=== PATIENT | female | born 1960 | race American Indian/Alaskan Native ===

== ENCOUNTER 2017-01-04 02:33 | Inpatient (IN) | payer MEDICAID ==
--- NOTE | 2017-01-04 03:11 | ED PDOC ---
HPI: Chest Pain Chief Complaint (Provider): Opioid withdrawal History Per: Patient History/Exam Limitations: clinical condition Onset/Duration Of Symptoms: Days (1) Current Symptoms Are (Timing): Still Present Quality: Pressure Associated Symptoms: Nausea. denies: Dyspnea Additional History Per: Prior Records <Horace Shahid - Last Filed: 01/04/17 04:31> <Sharad Kaplan - Last Filed: 01/04/17 05:56> Time Seen by Provider: 01/04/17 02:43 Chief Complaint (Nursing): Abdominal Pain Additional Complaint(s): 56 year old female with medical history of breast cancer, herniated disc, substance abuse, bipolar disorder presents to ED via EMS due to withdrawals. Patient states she usually takes Dilaudid 2mg PO four times a day for back pain. Patient states ran out of medication last night. Admits to snorting heroin this morning. Patient states has been having withdrawal like symptoms for last 5 hours including nausea, vomiting, chest pressure, abdominal pain, and chills. No fever, headache, palpitations, or IVDA. Patient denies use of any other illicit drugs or etoh. Patient admits to getting 120 pills of Dialudid on 12/21/16 that was prescribed by Dr. Phillips. Patient also admits that she has been taking more than she was prescribed to be taking it, which is why she ran out of meds last night. PMD: [facility] (Horace Shahid) Past Medical History Reviewed: Historical Data, Nursing Documentation, Vital Signs - Medical History PMH: Anxiety, Asthma, Bipolar Disorder, Depression Denies: Chronic Kidney Disease - Family History Family History: States: Unknown Family Hx <Horace Shahid - Last Filed: 01/04/17 04:31> <Sharad Kaplan - Last Filed: 01/04/17 05:56> Vital Signs: Last Vital Signs Temp 98.2 F 01/04/17 02:41 Pulse 80 01/04/17 03:50 Resp 18 01/04/17 03:50 BP 153/94 H 01/04/17 03:50 Pulse Ox 100 01/04/17 04:32 - Home Medications Home Medications: Ambulatory Orders Medication Instructions Recorded Alprazolam [Xanax] 1 mg PO QID 04/27/14 DULoxetine [Cymbalta] 100 mg PO HS 04/27/14 Quetiapine Fumarate [Seroquel] 100 mg PO HS 04/27/14 traZODone [Desyrel] 50 mg PO DAILY 11/21/14 Hydromorphone HCl [Dilaudid] 2 mg PO Q6 PRN 03/06/15 - Allergies Allergies/Adverse Reactions: Allergies Allergy/AdvReac Type Severity Reaction Status Date / Time iodine Allergy RASH Verified 11/13/15 09:48 Review of Systems ROS Statement: Except As Marked, All Systems Reviewed And Found Negative Constitutional: Positive for: Chills. Negative for: Fever Cardiovascular: Positive for: Chest Pain. Negative for: Palpitations Respiratory: Negative for: Cough, Shortness of Breath Gastrointestinal: Positive for: Nausea, Vomiting, Abdominal Pain. Negative for : Diarrhea Skin: Negative for: Rash Neurological: Negative for: Weakness, Dizziness Psych: Positive for: Withdrawal <Horace Shahid - Last Filed: 01/04/17 04:31> Physical Exam - Reviewed Nursing Documentation Reviewed: Yes Vital Signs Reviewed: Yes - Physical Exam Appears: Positive for: Well, Non-toxic, Uncomfortable (withdrawing) Head Exam: Positive for: ATRAUMATIC, NORMAL INSPECTION, NORMOCEPHALIC Skin: Positive for: Normal Color, Warm, Dry Eye Exam: Positive for: Normal appearance, EOMI, PERRL ENT: Positive for: Normal ENT Inspection Neck: Positive for: Normal, Painless ROM, Supple Cardiovascular/Chest: Positive for: Regular Rate, Rhythm Respiratory: Positive for: Normal Breath Sounds. Negative for: Rales, Rhonchi, Wheezing, Respiratory Distress Gastrointestinal/Abdominal: Positive for: Normal Exam, Bowel Sounds, Soft. Negative for: Tenderness Back: Positive for: Normal Inspection. Negative for: L CVA Tenderness, R CVA Tenderness Extremity: Positive for: Normal ROM. Negative for: Tenderness, Pedal Edema Neurologic/Psych: Positive for: Alert, Oriented <Horace Shahid - Last Filed: 01/04/17 04:31> - Laboratory Results Result Diagrams: 01/04/17 03:43 01/04/17 03:43 - ECG ECG Rhythm: Positive for: Normal QRS, Sinus Rhythm, ST/T Changes (throughout, compared to EKG 03/2016 which was not present) O2 Sat by Pulse Oximetry: 100 Pulse Ox Interpretation: Normal <Horace Shahid - Last Filed: 01/04/17 04:31> - Laboratory Results Result Diagrams: 01/04/17 03:43 01/04/17 03:43 <Sharad Kaplan - Last Filed: 01/04/17 05:56> - Progress ED Course And Treament: Time: 0245 Initial impression: 56 year old female w/ PMHx of breast cancer, herniated disc , substance abuse, bipolar disorder with opioid withdrawal symptoms and EKG T wave changes in the present of chest pressure. Plan: * CONTINUOUS CARDIAC MONITORING * CBC * CMP * LIPASE * TROPONIN * EKG * URINE DIP * URINALYSIS * URINE DRUG SCREEN * ALCOHOL SERUM * DILAUDID 2MG IVP * ZOFRAN 4MG IVP * ASA 325MG * NITROSTAT * ADMIT TO TELEMETRY FOR OBSERVATION CHEST PAIN/OPIATE WITHDRAWAL UNDER [facility] (Horace Shahid) Disposition - Patient ED Disposition Is Patient to be Admitted: Yes - Disposition Disposition Time: 04:00 <Horace Shahid - Last Filed: 01/04/17 04:31> Comment: Shashi Buenrostro made aware at 6AM - Pt Status Changed To: Hospital Disposition Of: Observation <Sharad Kaplan - Last Filed: 01/04/17 05:56> - Clinical Impression Clinical Impression: Chest pain, Opiate withdrawal - Disposition Condition: FAIR
[2017-01-04] MEDS ORDERED: Sodium Chloride 0.9% 1,000 ML IV SCH (03:15)
[2017-01-04 03:51] LABS: BASO # 0.1 K/uL (0.0-0.2); BASO % 0.5 % (0.0-2.0); HEMATOCRIT 42.4 % (34.0-47.0); LYMPH # 1.2 K/uL (1.0-4.3); LYMPH % 6.8 % (20.0-40.0); MEAN CELL VOLUME 88.6 fl (81.0-99.0); MEAN CORPUSCULAR HEMOGLOBIN 29.4 pg (27.0-31.0); MEAN CORPUSCULAR HGB CONC 33.2 g/dL (33.0-37.0); MEAN PLATELET VOLUME 8.5 fl (7.2-11.7); MONO # 0.4 K/uL (0.0-0.8); MONO % 2.2 % (0.0-10.0); NEUT # 15.6 K/uL (1.8-7.0); NEUT % 90.5 % (50.0-75.0); PLATELET COUNT 213 K/uL (130-400); RED CELL DISTRIBUTION WIDTH 14.4 % (11.5-14.5); WHITE BLOOD COUNT 17.2 K/uL (4.8-10.8)
[2017-01-04 03:58] LABS: ALB/GLOB RATIO 1.3 (1.0-2.1); ALCOHOL SERUM < 10 mg/dl (0-10); ALKALINE PHOSPHATASE 127 U/L (38-126); ALT/SGPT 21 U/L (9-52); AST/SGOT 22 U/L (14-36); BILIRUBIN,TOTAL 0.6 mg/dl (0.2-1.3); BLOOD UREA NITROGEN 17 mg/dl (7-17); CALCIUM 10.9 mg/dL (8.4-10.2); CARBON DIOXIDE 22 mmol/L (22-30); CHLORIDE 106 mmol/L (98-107); GFR AFRICAN-AMERICAN > 60; GLUCOSE,RANDOM 180 mg/dL (65-105); LIPASE 40 U/L (23-300); POTASSIUM 3.2 MMOL/L (3.6-5.0); SODIUM 147 mmol/l (132-148)
[2017-01-04 04:11] LABS: PARTIAL THROMBOPLASTIN TIME 22.9 SECONDS (23.3-32.5)
[2017-01-04 05:38] LABS: EOSINOPHIL 1 % (0-7); NEUTROPHIL 88 % (42-75); TOTAL CELLS COUNTED 100
[2017-01-04 06:21] VITALS: BMI 29.2
[2017-01-04] MEDS: Nitroglycerin 2% 15 INCH/30 GM TUBE TOP SCH ×3 (09:28→21:33)
--- NOTE | 2017-01-04 10:15 | RAD ---
HISTORY: chest pain COMPARISON: 04/17/2011 FINDINGS: LUNGS: Linear opacities in the lingula, likely atelectasis. PLEURA: No significant pleural effusion identified, no pneumothorax apparent.Biapical pleural parenchymal thickening noted. CARDIOVASCULAR: Mildly enlarged cardiomediastinal silhouette when compared to the radiograph from 2011. OSSEOUS STRUCTURES: The osseous structures demonstrate degenerative changes. VISUALIZED UPPER ABDOMEN: Upper abdomen is suboptimally evaluated. OTHER FINDINGS: Surgical clips in the right axilla. IMPRESSION: Most likely atelectatic changes in the lingula.
--- NOTE | 2017-01-04 10:18 | CP.PCM.HP ---
History of Present Illness - History of Present Illness History of Present Illness: pt admitted for chest pain after snorting heroin. pt used heroin as she ran out of her dilaudid early. pt is on dialudid q6 prn pain for chronic back pain r /t herniate dlumbar disc. pt states that she ahs been on this med for so long it does not work well for her. no pain reported at present after taking xanax. urine tox positive for opioids not benzos. wbc 17, k low, coags noted. pt offers no complaints at present. no fc/, n/v/d. consults called by this provider. Present on Admission - Present on Admission Any Indicators Present on Admission: No Review of Systems - Cardiovascular Cardiovascular: As Per HPI, Chest Pain - Musculoskeletal Musculoskeletal: As Per HPI, Back Pain Past Patient History - Past Medical History & Family History Past Medical History?: Yes - Past Social History Smoking Status: Never Smoked - CARDIAC Hx Cardiac Disorders: No - PULMONARY Hx Asthma: Yes - NEUROLOGICAL Hx Neurological Disorder: No - HEENT Hx HEENT Problems: No - RENAL Hx Chronic Kidney Disease: No - ENDOCRINE/METABOLIC Hx Endocrine Disorders: No - HEMATOLOGICAL/ONCOLOGICAL Hx Blood Disorders: Yes Hx Cancer: Yes (Right breast CA) Hx Chemotherapy: Yes Other/Comment: hx of right breast cancer - INTEGUMENTARY Hx Dermatological Problems: No - MUSCULOSKELETAL/RHEUMATOLOGICAL Hx Musculoskeletal Disorders: Yes Hx Back Pain: Yes Hx Falls: Yes Hx Herniated Disk: Yes - GASTROINTESTINAL Hx Gastrointestinal Disorders: No - GENITOURINARY/GYNECOLOGICAL Hx Genitourinary Disorders: No Other/Comment: hx of tumor in uterus/cyst in ovary breast ca on right - PSYCHIATRIC Hx Anxiety: Yes Hx Bipolar Disorder: Yes Hx Depression: Yes Hx Substance Use: Yes - SURGICAL HISTORY Hx Surgeries: Yes Hx Mastectomy: Yes (right) Other/Comment: /cyst in the ovarywedge resection-tumor. 03/06/2015 medial nerve branch inj. - ANESTHESIA Hx Anesthesia: Yes Hx Anesthesia Reactions: No Hx Malignant Hyperthermia: No Meds Allergies/Adverse Reactions: Allergies Allergy/AdvReac Type Severity Reaction Status Date / Time iodine Allergy RASH Verified 11/13/15 09:48 Physical Exam - Constitutional Appears: Well, Non-toxic, No Acute Distress - Head Exam Head Exam: ATRAUMATIC, NORMAL INSPECTION, NORMOCEPHALIC - Eye Exam Eye Exam: EOMI, Normal appearance, PERRL Pupil Exam: NORMAL ACCOMODATION, PERRL - ENT Exam ENT Exam: Mucous Membranes Moist, Normal Exam - Neck Exam Neck exam: Positive for: Normal Inspection - Respiratory Exam Respiratory Exam: Clear to Auscultation Bilateral, NORMAL BREATHING PATTERN - Cardiovascular Exam Cardiovascular Exam: REGULAR RHYTHM, RRR, +S1, +S2 - GI/Abdominal Exam GI & Abdominal Exam: Normal Bowel Sounds, Soft. absent: Tenderness - Extremities Exam Extremities exam: Positive for: full ROM, normal capillary refill, normal inspection, pedal pulses present - Back Exam Back exam: NORMAL INSPECTION - Neurological Exam Neurological exam: Alert, CN II-XII Intact, Normal Gait, Oriented x3, Reflexes Normal - Psychiatric Exam Psychiatric exam: Normal Affect, Normal Mood - Skin Skin Exam: Dry, Intact, Normal Color, Warm Results - Vital Signs Recent Vital Signs: Last Vital Signs Temp 98.4 F 01/04/17 08:10 Pulse 89 01/04/17 08:10 Resp 16 01/04/17 08:10 BP 158/91 H 01/04/17 08:10 Pulse Ox 98 01/04/17 08:10 - Labs Result Diagrams: 01/04/17 03:43 01/04/17 03:43 Labs: Laboratory Results - last 24 hr 01/04/17 01/04/17 01/04/17 03:43 03:43 03:43 WBC 17.2 H D RBC 4.79 Hgb 14.1 Hct 42.4 MCV 88.6 MCH 29.4 MCHC 33.2 RDW 14.4 Plt Count 213 MPV 8.5 Neut % (Auto) 90.5 H Lymph % (Auto) 6.8 L Shelby % (Auto) 2.2 Eos % (Auto) 0.0 Baso % (Auto) 0.5 Neut # 15.6 H Lymph # 1.2 Shelby # 0.4 Eos # 0.0 Baso # 0.1 Neutrophils % (Manual) 88 H Band Neutrophils % 1 Lymphocytes % (Manual) 8 L Monocytes % (Manual) 2 Eosinophils % (Manual) 1 Platelet Estimate Normal RBC Morphology Normal PT 12.0 H INR 1.15 H APTT 22.9 L Sodium 147 Potassium 3.2 L Chloride 106 Carbon Dioxide 22 Anion Gap 22 H BUN 17 Creatinine 0.6 L Est GFR ( Amer) > 60 Est GFR (Non-Af Amer) > 60 Random Glucose 180 H Calcium 10.9 H Total Bilirubin 0.6 AST 22 ALT 21 Alkaline Phosphatase 127 H D Troponin I < 0.0120 Total Protein 9.0 H Albumin 5.1 H D Globulin 4.0 H Albumin/Globulin Ratio 1.3 Lipase 40 Urine Opiates Screen Urine Methadone Screen Ur Barbiturates Screen Ur Phencyclidine Scrn Ur Amphetamines Screen U Benzodiazepines Scrn U Oth Cocaine Metabols U Cannabinoids Screen Alcohol, Quantitative < 10 01/04/17 04:56 WBC RBC Hgb Hct MCV MCH MCHC RDW Plt Count MPV Neut % (Auto) Lymph % (Auto) Shelby % (Auto) Eos % (Auto) Baso % (Auto) Neut # Lymph # Shelby # Eos # Baso # Neutrophils % (Manual) Band Neutrophils % Lymphocytes % (Manual) Monocytes % (Manual) Eosinophils % (Manual) Platelet Estimate RBC Morphology PT INR APTT Sodium Potassium Chloride Carbon Dioxide Anion Gap BUN Creatinine Est GFR ( Amer) Est GFR (Non-Af Amer) Random Glucose Calcium Total Bilirubin AST ALT Alkaline Phosphatase Troponin I Total Protein Albumin Globulin Albumin/Globulin Ratio Lipase Urine Opiates Screen Positive H Urine Methadone Screen Negative Ur Barbiturates Screen Negative Ur Phencyclidine Scrn Negative Ur Amphetamines Screen Negative U Benzodiazepines Scrn Negative U Oth Cocaine Metabols Negative U Cannabinoids Screen Negative Alcohol, Quantitative Assessment & Plan (1) DVT prophylaxis Assessment and Plan: scd nad ae hose ambulation lovenox if admitted over 24h Status: Acute (2) Hypokalemia Assessment and Plan: repeat, tx as indicated Status: Acute (3) Elevated WBC count Assessment and Plan: repeat, tx as indicated cxr report, ua and c/s blood cs Status: Acute (4) Chest pain Assessment and Plan: trops asa cardio no further cp, ntg prn Status: Acute (5) Opiate withdrawal Assessment and Plan: no s/s withdrawal at present, pt is on ebnzo which seem to help pm/r consult Status: Acute Decision To Admit - Pt Status Changed To: Hospital Disposition Of: Observation - . Bed Request Type: Telemetry Admitting Physician: Yajaira Fernández
--- NOTE | 2017-01-04 10:55 | CARD ---
APPROVED REPORT EKG Measurement Heart [id number] <Conclusion> Normal sinus rhythm Possible Right ventricular hypertrophy ST & T wave abnormality, consider inferior ischemia ST & T wave abnormality, consider anterolateral ischemia Prolonged QT Abnormal ECG
[2017-01-04 11:57] LABS: BASO % 0.2 % (0.0-2.0); HEMATOCRIT 40.2 % (34.0-47.0); LYMPH # 1.5 K/uL (1.0-4.3); LYMPH % 12.1 % (20.0-40.0); MEAN CELL VOLUME 89.9 fl (81.0-99.0); MEAN CORPUSCULAR HEMOGLOBIN 29.7 pg (27.0-31.0); MEAN PLATELET VOLUME 8.5 fl (7.2-11.7); MONO # 0.5 K/uL (0.0-0.8); MONO % 3.6 % (0.0-10.0); NEUT # 10.7 K/uL (1.8-7.0); NEUT % 84.1 % (50.0-75.0); RED CELL DISTRIBUTION WIDTH 14.5 % (11.5-14.5); WHITE BLOOD COUNT 12.7 K/uL (4.8-10.8)
[2017-01-04 12:38] LABS: ALB/GLOB RATIO 1.2 (1.0-2.1); ALKALINE PHOSPHATASE 117 U/L (38-126); ALT/SGPT 19 U/L (9-52); AST/SGOT 20 U/L (14-36); BILIRUBIN,TOTAL 0.6 mg/dl (0.2-1.3); BLOOD UREA NITROGEN 16 mg/dl (7-17); CALCIUM 10.4 mg/dL (8.4-10.2); CARBON DIOXIDE 25 mmol/L (22-30); CHLORIDE 105 mmol/L (98-107); GFR AFRICAN-AMERICAN > 60; GLUCOSE,RANDOM 140 mg/dL (65-105); POTASSIUM 3.4 MMOL/L (3.6-5.0); SODIUM 145 mmol/l (132-148); TOTAL PROTEIN 8.8 G/DL (6.3-8.2)
--- NOTE | 2017-01-04 13:48 | CP.PCM.CON ---
History of Present Illness - History of Present Illness History of Present Illness: I was asked to see patient by Shashi Buenrostro APN and Dr. Fernández. Patient is a 56 year old female with PMH HTN, and heroin abuse who presents with chest pain. The patient is on chronic opiod therapy for back pain. She ran out of meds, and snorted heroin. He has had chest pain, nonradiating, occurring at rest. She denies exertional symptoms. She is asking me fro a Dilaudid shot. Review of Systems - Constitutional Constitutional: absent: As Per HPI, Anorexia, Chills, Daytime Sleepiness, Excessive Sweating, Fatigue, Fever, Frequent Falls, Headache, Increased Appetite , Lethargy, Malaise, Night Sweats, Snoring, Sleep Apnea, Weight Gain, Weight Loss, Weakness, Other - EENT Eyes: absent: As Per HPI, Blind Spots, Blurred Vision, Change in Vision, Decreased Night Vision, Diplopia, Discharge, Dry Eye, Exophthalmos, Floaters, Irritation, Itchy Eyes, Loss of Peripheral Vision, Pain, Photophobia, Requires Corrective Lenses, Sees Flashes, Spots in Vision, Tunnel Vision, Other Visual Disturbances, Loss of Vision, Other Ears: absent: As Per HPI, Decreased Hearing, Ear Discharge, Ear Pain, Tinnitus, Abnormal Hearing, Disequilibrium, Dizziness, Other Nose/Mouth/Throat: absent: As Per HPI, Epistaxis, Nasal Congestion, Nasal Discharge, Nasal Obstruction, Nasal Trauma, Nose Pain, Post Nasal Drip, Sinus Pain, Sinus Pressure, Bleeding Gums, Change in Voice, Dental Pain, Dry Mouth, Dysphagia, Halitosis, Hoarsness, Lip Swelling, Mouth Lesions, Mouth Pain, Odynophagia, Sore Throat, Throat Swelling, Tongue Swelling, Facial Pain, Neck Pain, Neck Mass, Other - Cardiovascular Cardiovascular: absent: As Per HPI, Acrocyanosis, Chest Pain, Chest Pain at Rest , Chest Pain with Activity, Claudication, Diaphoresis, Dyspnea, Dyspnea on Exertion, Edema, Irregular Heart Rhythm, Pain Radiating to Arm/Neck/Jaw, Leg Edema, Leg Ulcers, Lightheadedness, Orthopnea, Palpitations, Paroxysmal Nocturnal Dyspnea, Pedal Edema, Radiating Pain, Rapid Heart Rate, Slow Heart Rate, Syncope, Other - Respiratory Respiratory: absent: As Per HPI, Cough, Dyspnea, Hemoptysis, Dyspnea on Exertion , Wheezing, Snoring, Stridor, Pain on Inspiration, Chest Congestion, Excessive Mucous Production, Change in Mucous Color, Pain with Coughing, Other - Gastrointestinal Gastrointestinal: absent: As Per HPI, Abdominal Pain, Belching, Bloating, Change in Bowel Habits, Change in Stool Character, Coffee Ground Emesis, Constipation, Cramping, Diarrhea, Dyspepsia, Dysphagia, Early Satiety, Excessive Flatus, Fecal Incontinence, Heartburn, Hematemesis, Hematochezia, Loose Stools, Melena, Nausea, Odynophagia, Temesmus, Vomiting, Other - Musculoskeletal Musculoskeletal: absent: As Per HPI, Abnormal Gait, Arthralgias, Atrophy, Back Pain, Deformity, Joint Swelling, Limited Range of Motion, Loss of Height, Muscle Cramps, Muscle Weakness, Myalgias, Neck Pain, Numbness, Radiating Pain into Limb, Stiffness, Tingling, Other - Integumentary Integumentary: absent: As Per HPI, Acne, Alopecia, Bleeding Lesions, Change in Hair, Change in Nails, Change in Pigmentation, Changing Lesions, Dry Skin, Erythema, Furuncle, Hirsutism, Lesions, New Lesions, Non-Healing Lesions, Photosensitivity, Pruritus, Rash, Skin Pain, Skin Ulcer, Sores, Striae, Swelling , Unusual Bruising, Wounds, Jaundice, Other - Neurological Neurological: absent: As Per HPI, Abnormal Gait, Abnormal Hearing, Abnormal Movements, Abnormal Speech, Behavioral Changes, Burning Sensations, Confusion, Convulsions, Disequilibrium, Dizziness, Numbness, Focal Weakness, Frequent Falls , Headaches, Lack of Coordination, Loss of Vision, Memory Loss, Paresthesias, Radicular Pain, Restless Legs, Sensory Deficit, Syncope, Tingling, Tremor, Vertigo, Weakness, Other Visual Disturbances, Other - Psychiatric Psychiatric: absent: As Per HPI, Abnormal Sleep Pattern, Anhedonia, Anxiety, Auditory Hallucinations, Behavioral Changes, Change in Appetite, Change in Libido, Confusion, Depression, Difficulty Concentrating, Hallucinations, Homicidal Ideation, Hopelessness, Irritability, Memory Loss, Mood Swings, Panic Attacks, Paranoia, Suicidal Ideation, Visual Hallucinations, Tactile Hallucinations, Other - Endocrine Endocrine: absent: As Per HPI, Change in Body Appearance, Change in Libido, Cold Intolorance, Deepening of Voice, Excessive Sweating, Fatigue, Flushing, Heat Intolorance, Increase in Ring/Shoe/Hat Size, Palpitations, Polydipsia, Polyphagia, Polyuria, Other - Hematologic/Lymphatic Hematologic: absent: As Per HPI, Easy Bleeding, Easy Bruising, Lymphadenopathy, Other Past Patient History - Past Medical History & Family History Past Medical History?: Yes - Past Social History Smoking Status: Never Smoked - CARDIAC Hx Cardiac Disorders: No - PULMONARY Hx Asthma: Yes - NEUROLOGICAL Hx Neurological Disorder: No - HEENT Hx HEENT Problems: No - RENAL Hx Chronic Kidney Disease: No - ENDOCRINE/METABOLIC Hx Endocrine Disorders: No - HEMATOLOGICAL/ONCOLOGICAL Hx Blood Disorders: Yes Hx Cancer: Yes (Right breast CA) Hx Chemotherapy: Yes Other/Comment: hx of right breast cancer - INTEGUMENTARY Hx Dermatological Problems: No - MUSCULOSKELETAL/RHEUMATOLOGICAL Hx Musculoskeletal Disorders: Yes Hx Back Pain: Yes Hx Falls: Yes Hx Herniated Disk: Yes - GASTROINTESTINAL Hx Gastrointestinal Disorders: No - GENITOURINARY/GYNECOLOGICAL Hx Genitourinary Disorders: No Other/Comment: hx of tumor in uterus/cyst in ovary breast ca on right - PSYCHIATRIC Hx Anxiety: Yes Hx Bipolar Disorder: Yes Hx Depression: Yes Hx Substance Use: Yes - SURGICAL HISTORY Hx Surgeries: Yes Hx Mastectomy: Yes (right) Other/Comment: /cyst in the ovarywedge resection-tumor. 03/06/2015 medial nerve branch inj. - ANESTHESIA Hx Anesthesia: Yes Hx Anesthesia Reactions: No Hx Malignant Hyperthermia: No Meds Allergies/Adverse Reactions: Allergies Allergy/AdvReac Type Severity Reaction Status Date / Time iodine Allergy RASH Verified 11/13/15 09:48 - Medications Medications: Current Medications Alprazolam (Xanax) 1 mg PO QID [facility] Last Admin: 01/04/17 12:30 Dose: 1 mg Aspirin (Aspirin Chewable) 81 mg PO DAILY [facility] Duloxetine HCl (Cymbalta) 40 mg PO HS [facility] Duloxetine HCl (Cymbalta) 60 mg PO HS [facility] Hydromorphone HCl (Dilaudid) 2 mg PO Q8 PRN PRN Reason: Pain, moderate (4-7) Stop: 01/05/17 23:59 Sodium Chloride (Sodium Chloride 0.9%) 1,000 mls @ 999 mls/hr IV .Q1H1M [facility] Stop: 01/05/17 03:04 Last Admin: 01/04/17 03:45 Dose: 999 mls/hr Nitroglycerin (Nitro-Bid 2% Oint) 1 inch TOP Q6 [facility] Last Admin: 01/04/17 09:28 Dose: 1 inch Nitroglycerin (Nitrostat Sl Tab) 0.4 mg SL Q5M PRN PRN Reason: chest pain Ondansetron HCl (Zofran Inj) 4 mg IV Q6 PRN PRN Reason: Nausea/Vomiting Last Admin: 01/04/17 09:32 Dose: 4 mg Quetiapine Fumarate (Seroquel) 100 mg PO HS [facility] Trazodone HCl (Desyrel) 50 mg PO DAILY [facility] Last Admin: 01/04/17 09:27 Dose: 50 mg Physical Exam - Constitutional Appears: Non-toxic - Head Exam Head Exam: NORMAL INSPECTION - Eye Exam Eye Exam: Normal appearance - ENT Exam ENT Exam: Mucous Membranes Moist - Neck Exam Neck exam: Positive for: Full Rom - Respiratory Exam Respiratory Exam: NORMAL BREATHING PATTERN - Cardiovascular Exam Cardiovascular Exam: REGULAR RHYTHM - GI/Abdominal Exam GI & Abdominal Exam: Normal Bowel Sounds - Rectal Exam Rectal Exam: Deferred - Extremities Exam Extremities exam: Positive for: normal inspection - Back Exam Back exam: NORMAL INSPECTION - Neurological Exam Neurological exam: Alert, Oriented x3 - Psychiatric Exam Psychiatric exam: Normal Affect - Skin Skin Exam: Normal Color Results - Vital Signs Recent Vital Signs: Last Vital Signs Temp 99.4 F 01/04/17 12:15 Pulse 79 01/04/17 12:15 Resp 23 01/04/17 12:15 BP 156/89 H 01/04/17 12:15 Pulse Ox 95 01/04/17 12:15 - Labs Result Diagrams: 01/04/17 11:47 01/04/17 11:47 Labs: Laboratory Results - last 24 hr 01/04/17 01/04/17 01/04/17 03:43 03:43 03:43 WBC 17.2 H D RBC 4.79 Hgb 14.1 Hct 42.4 MCV 88.6 MCH 29.4 MCHC 33.2 RDW 14.4 Plt Count 213 MPV 8.5 Neut % (Auto) 90.5 H Lymph % (Auto) 6.8 L Amelia % (Auto) 2.2 Eos % (Auto) 0.0 Baso % (Auto) 0.5 Neut # 15.6 H Lymph # 1.2 Amelia # 0.4 Eos # 0.0 Baso # 0.1 Neutrophils % (Manual) 88 H Band Neutrophils % 1 Lymphocytes % (Manual) 8 L Monocytes % (Manual) 2 Eosinophils % (Manual) 1 Platelet Estimate Normal RBC Morphology Normal PT 12.0 H INR 1.15 H APTT 22.9 L Sodium 147 Potassium 3.2 L Chloride 106 Carbon Dioxide 22 Anion Gap 22 H BUN 17 Creatinine 0.6 L Est GFR ( Amer) > 60 Est GFR (Non-Af Amer) > 60 Random Glucose 180 H Calcium 10.9 H Total Bilirubin 0.6 AST 22 ALT 21 Alkaline Phosphatase 127 H D Troponin I < 0.0120 Total Protein 9.0 H Albumin 5.1 H D Globulin 4.0 H Albumin/Globulin Ratio 1.3 Lipase 40 Urine Opiates Screen Urine Methadone Screen Ur Barbiturates Screen Ur Phencyclidine Scrn Ur Amphetamines Screen U Benzodiazepines Scrn U Oth Cocaine Metabols U Cannabinoids Screen Alcohol, Quantitative < 10 01/04/17 01/04/17 01/04/17 04:56 11:47 11:47 WBC 12.7 H RBC 4.47 Hgb 13.3 Hct 40.2 MCV 89.9 MCH 29.7 MCHC 33.0 RDW 14.5 Plt Count 189 MPV 8.5 Neut % (Auto) 84.1 H Lymph % (Auto) 12.1 L Amelia % (Auto) 3.6 Eos % (Auto) 0.0 Baso % (Auto) 0.2 Neut # 10.7 H Lymph # 1.5 Amelia # 0.5 Eos # 0.0 Baso # 0.0 Neutrophils % (Manual) Band Neutrophils % Lymphocytes % (Manual) Monocytes % (Manual) Eosinophils % (Manual) Platelet Estimate RBC Morphology PT INR APTT Sodium 145 Potassium 3.4 L Chloride 105 Carbon Dioxide 25 Anion Gap 18 BUN 16 Creatinine 0.6 L Est GFR ( Amer) > 60 Est GFR (Non-Af Amer) > 60 Random Glucose 140 H Calcium 10.4 H Total Bilirubin 0.6 AST 20 ALT 19 Alkaline Phosphatase 117 Troponin I < 0.0120 Total Protein 8.8 H Albumin 4.9 Globulin 4.0 H Albumin/Globulin Ratio 1.2 Lipase Urine Opiates Screen Positive H Urine Methadone Screen Negative Ur Barbiturates Screen Negative Ur Phencyclidine Scrn Negative Ur Amphetamines Screen Negative U Benzodiazepines Scrn Negative U Oth Cocaine Metabols Negative U Cannabinoids Screen Negative Alcohol, Quantitative - EKG Data EKG Interpreted by: Myself EKG shows normal: Sinus rhythm Assessment & Plan (1) Hypertension Assessment and Plan: willneed to monitor blood pressure. consider additon of Norvasc 10 mg daily. Status: Acute (2) Chest pain Assessment and Plan: no acute ischemia noted. recommend serial cardiac enzymes. check echocardiogram to assess for regional wall motion abnormalities. If cardiac enzymes are negative patient can likely be discharged home. Status: Acute
[2017-01-04] MEDS ORDERED: Potassium Chloride 20 mEq ER Tab PO ONE (15:39)
[2017-01-05] MEDS: Nitroglycerin 2% 15 INCH/30 GM TUBE TOP SCH ×2 (04:00→09:10)
[2017-01-05 05:32] LABS: BASO % 0.3 % (0.0-2.0); LYMPH # 2.8 K/uL (1.0-4.3); LYMPH % 19.7 % (20.0-40.0); MEAN CELL VOLUME 90.7 fl (81.0-99.0); MEAN CORPUSCULAR HEMOGLOBIN 29.8 pg (27.0-31.0); MEAN CORPUSCULAR HGB CONC 32.8 g/dL (33.0-37.0); MEAN PLATELET VOLUME 8.3 fl (7.2-11.7); NEUT # 10.3 K/uL (1.8-7.0); RED CELL DISTRIBUTION WIDTH 14.6 % (11.5-14.5); WHITE BLOOD COUNT 14.1 K/uL (4.8-10.8)
[2017-01-05 05:46] LABS: ALB/GLOB RATIO 1.3 (1.0-2.1); ALKALINE PHOSPHATASE 113 U/L (38-126); ALT/SGPT 63 U/L (9-52); AST/SGOT 71 U/L (14-36); BILIRUBIN,TOTAL 0.8 mg/dl (0.2-1.3); BLOOD UREA NITROGEN 14 mg/dl (7-17); CALCIUM 10.2 mg/dL (8.4-10.2); CARBON DIOXIDE 25 mmol/L (22-30); CHLORIDE 103 mmol/L (98-107); GFR AFRICAN-AMERICAN > 60; GLUCOSE,RANDOM 132 mg/dL (65-105); SODIUM 141 mmol/l (132-148); TOTAL PROTEIN 8.3 G/DL (6.3-8.2)
[2017-01-05] MEDS ORDERED: Potassium Chloride 20 mEq ER Tab PO ONE (06:12)
--- NOTE | 2017-01-05 07:19 | CP.PCM.PN ---
Subjective - Date & Time of Evaluation Date of Evaluation: 01/05/17 Time of Evaluation: 07:19 - Subjective Subjective: pt comfortable in bed. no distress/no f/c, n/v/d. bw noted. wbc 14, k 3.0. ua pending. echo pending.t rops negative. pm/r consult pending. no cp, abd pain. Objective - Vital Signs/Intake and Output Vital Signs (last 24 hours): Temp Pulse Resp BP Pulse Ox 98.5 F 87 18 134/77 98 01/05/17 05:00 01/05/17 05:00 01/05/17 05:00 01/05/17 05:00 01/05/17 05:00 Intake and Output: 01/05/17 01/05/17 06:59 18:59 Intake Total 260 Balance 260 - Medications Medications: Current Medications Alprazolam (Xanax) 1 mg PO QID [facility] Last Admin: 01/04/17 21:33 Dose: 1 mg Aspirin (Aspirin Chewable) 81 mg PO DAILY [facility] Duloxetine HCl (Cymbalta) 40 mg PO [facility] Last Admin: 01/04/17 21:32 Dose: 40 mg Duloxetine HCl (Cymbalta) 60 mg PO [facility] Last Admin: 01/04/17 21:32 Dose: 60 mg Hydromorphone HCl (Dilaudid) 2 mg PO Q8 PRN PRN Reason: Pain, moderate (4-7) Stop: 01/05/17 23:59 Nitroglycerin (Nitro-Bid 2% Oint) 1 inch TOP Q6 [facility] Last Admin: 01/05/17 04:00 Dose: 1 inch Nitroglycerin (Nitrostat Sl Tab) 0.4 mg SL Q5M PRN PRN Reason: chest pain Ondansetron HCl (Zofran Inj) 4 mg IV Q6 PRN PRN Reason: Nausea/Vomiting Last Admin: 01/05/17 05:42 Dose: 4 mg Quetiapine Fumarate (Seroquel) 100 mg PO [facility] Last Admin: 01/04/17 21:32 Dose: 100 mg Trazodone HCl (Desyrel) 50 mg PO DAILY [facility] Last Admin: 01/04/17 09:27 Dose: 50 mg - Labs Labs: 01/05/17 04:25 01/05/17 04:25 PT 12.0 SECONDS (9.6-11.2) H 01/04/17 03:43 INR 1.15 (0.92-1.08) H 01/04/17 03:43 APTT 22.9 SECONDS (23.3-32.5) L 01/04/17 03:43 - Constitutional Appears: Well, Non-toxic, No Acute Distress - Head Exam Head Exam: ATRAUMATIC, NORMAL INSPECTION, NORMOCEPHALIC - Eye Exam Eye Exam: EOMI, Normal appearance, PERRL Pupil Exam: NORMAL ACCOMODATION, PERRL - ENT Exam ENT Exam: Mucous Membranes Moist, Normal Exam - Neck Exam Neck Exam: Full ROM, Normal Inspection. absent: Lymphadenopathy - Respiratory Exam Respiratory Exam: Clear to Ausculation Bilateral, NORMAL BREATHING PATTERN - Cardiovascular Exam Cardiovascular Exam: REGULAR RHYTHM, RRR, +S1, +S2. absent: Murmur - GI/Abdominal Exam GI & Abdominal Exam: Soft, Normal Bowel Sounds. absent: Tenderness - Extremities Exam Extremities Exam: Full ROM, Normal Capillary Refill, Normal Inspection. absent : Joint Swelling, Pedal Edema - Back Exam Back Exam: NORMAL INSPECTION - Neurological Exam Neurological Exam: Alert, Awake, CN II-XII Intact, Normal Gait, Oriented x3 - Psychiatric Exam Psychiatric exam: Normal Affect, Normal Mood - Skin Skin Exam: Dry, Intact, Normal Color, Warm Assessment and Plan (1) DVT prophylaxis Status: Acute (2) Hypokalemia Status: Acute (3) Elevated WBC count Status: Acute (4) Chest pain Status: Acute (5) Opiate withdrawal Status: Acute - Assessment and Plan (Free Text) Assessment: (1) DVT prophylaxis Assessment and Plan: scd nad ae hose ambulation lovenox if admitted over 24h Status: Acute (2) Hypokalemia Assessment and Plan: kdur, repeat 1300 Status: Acute (3) Elevated WBC count Assessment and Plan: repeat, tx as indicated cxr report, ua and c/s blood cs Status: Acute (4) Chest pain Assessment and Plan: trops asa cardio no further cp, ntg prn echo Status: Acute (5) Opiate withdrawal Assessment and Plan: no s/s withdrawal at present, pt is on benzo which seem to help pm/r consult Status: Acute likely dc today
[2017-01-05 07:38] VITALS: PULSE 84
--- NOTE | 2017-01-05 08:31 | CP.PCM.PN ---
Subjective - Date & Time of Evaluation Date of Evaluation: 01/05/17 Time of Evaluation: 08:15 - Subjective Subjective: Patient is well known to me from outpatient pain management clinic. Her pain has been treated with Dilaudid 2mg, Soma 350mg, on a monthly basis and injections intermittently for her lower back pain. She has chronic pain from cervical and lumbar spondylosis and post mastectomy pain syndrome. She's always been compliant and her tox screen has always been appropriate. She admits to using heroin after running out of pain medications. I explained to the patient that I will no longer be able to see her as an outpatient, but 2-week prescription will be given so that she'll have time to find another pain physician. Objective - Vital Signs/Intake and Output Vital Signs (last 24 hours): Temp Pulse Resp BP Pulse Ox 98.3 F 84 16 139/78 96 01/05/17 07:37 01/05/17 07:37 01/05/17 07:37 01/05/17 07:37 01/05/17 07:37 Intake and Output: 01/05/17 01/05/17 06:59 18:59 Intake Total 260 Balance 260 - Medications Medications: Current Medications Alprazolam (Xanax) 1 mg PO QID [facility] Aspirin (Aspirin Chewable) 81 mg PO DAILY [facility] Duloxetine HCl (Cymbalta) 40 mg PO [facility] Last Admin: 01/04/17 21:32 Dose: 40 mg Duloxetine HCl (Cymbalta) 60 mg PO HS [facility] Last Admin: 01/04/17 21:32 Dose: 60 mg Hydromorphone HCl (Dilaudid) 2 mg PO Q8 PRN PRN Reason: Pain, moderate (4-7) Stop: 01/05/17 23:59 Nitroglycerin (Nitro-Bid 2% Oint) 1 inch TOP Q6 [facility] Last Admin: 01/05/17 04:00 Dose: 1 inch Nitroglycerin (Nitrostat Sl Tab) 0.4 mg SL Q5M PRN PRN Reason: chest pain Ondansetron HCl (Zofran Inj) 4 mg IV Q6 PRN PRN Reason: Nausea/Vomiting Last Admin: 01/05/17 05:42 Dose: 4 mg Quetiapine Fumarate (Seroquel) 100 mg PO HS [facility] Last Admin: 01/04/17 21:32 Dose: 100 mg Trazodone HCl (Desyrel) 50 mg PO DAILY [facility] Last Admin: 01/04/17 09:27 Dose: 50 mg - Labs Labs: 01/05/17 04:25 01/05/17 04:25 PT 12.0 SECONDS (9.6-11.2) H 01/04/17 03:43 INR 1.15 (0.92-1.08) H 01/04/17 03:43 APTT 22.9 SECONDS (23.3-32.5) L 01/04/17 03:43 - Cardiovascular Exam Cardiovascular Exam: REGULAR RHYTHM - Back Exam Back Exam: tenderness, vertebral tenderness Assessment and Plan (1) Opiate withdrawal Assessment & Plan: 56 yo woman w/ chronic pain, being ruled out for ACS after using heroin. - f/u cardiac recommendation - 2 week prescription of pain medication will be left in her chart - patient will find own pain physician upon discharge Status: Acute
[2017-01-05 10:48] LABS: RBC URINE 41 /hpf (0-3); URINE BILIRUBIN NEGATIVE (NEGATIVE); URINE BLOOD SMALL (NEGATIVE); URINE COLOR YELLOW (YELLOW); URINE GLUCOSE (UA) NEGATIVE (Normal); URINE KETONE 20 mg/dL (NEGATIVE); URINE LEUKOCYTE ESTERASE NEGATIVE Leu/uL (Negative); URINE PROTEIN 100 mg/dL (NEGATIVE); URINE UROBILINOGEN 0.2-1.0 mg/dL (0.2-1.0); WBC URINE 37 /hpf (0-5)
[2017-01-05 10:49] LABS: URINE BACTERIA OCC (<OCC)
[2017-01-05] MEDS ORDERED: Tmp-Smz 800 mg-160 mg DS Tab PO SCH (11:15)
[2017-01-05] MEDS ORDERED: Sodium Chloride 0.9% 1,000 ML IV SCH (11:15)
[2017-01-05 12:41] VITALS: BP 156/89; RESP 18; TEMP 98.2; O2SAT 97
--- NOTE | 2017-01-05 14:44 | CARD ---
APPROVED REPORT EXAM: Two-dimensional and M-mode echocardiogram with Doppler and color Doppler. Other Information Quality : GoodRhythm : NSR INDICATION Chest Pain 2D DIMENSIONS IVSd0.87 (0.7-1.1cm)LVDd4.51 (3.9-5.9cm) LVOT Diameter1.86 (1.8-2.4cm)PWd0.70 (0.7-1.1cm) IVSs1.02 (0.8-1.2cm)LVDs3.40 (2.5-4.0cm) FS (%) 24.5 %PWs1.08 (0.8-1.2cm) M-Mode DIMENSIONS Left Atrium (MM)3.21 (2.5-4.0cm)IVSd1.06 (0.7-1.1cm) Aortic Root3.06 (2.2-3.7cm)LVDd4.88 (4.0-5.6cm) Aortic Cusp Exc.2.00 (1.5-2.0cm)PWd1.18 (0.7-1.1cm) IVSs1.59 cmFS (%) 51 % LVDs2.41 (2.0-3.8cm)PWs1.50 cm Mitral Valve MV E Tdqbwefa18.1cm/sMV DECEL [id number] A Riyhconn40.2cm/s MV DZI75myB/A ratio0.9MVA (PHT)3.30cm2 TDI Lateral E' Peak V10.27cm/sMedial E' Peak V7.74cm/sE/Lateral E'7.1 E/Medial E'9.4 LEFT VENTRICLE The left ventricle is normal size. There is normal left ventricular wall thickness. Left ventricle systolic function is normal. The Ejection Fraction is 60-65%. There is normal LV segmental wall motion. Transmitral Doppler flow pattern is Grade I-abnormal relaxation pattern. RIGHT VENTRICLE The right ventricle is normal size. There is normal right ventricular wall thickness. The right ventricular systolic function is normal. ATRIA The left atrium size is normal. The right atrium size is normal. AORTIC VALVE The aortic valve is normal in structure and function. No aortic regurgitation is present. There is no aortic valvular stenosis. MITRAL VALVE The mitral valve is normal in structure and function. There is no evidence of mitral valve prolapse. There is no mitral valve stenosis. There is no mitral valve regurgitation noted. TRICUSPID VALVE The tricuspid valve is normal in structure and function. There is no tricuspid valve regurgitation noted. PULMONIC VALVE The pulmonary valve is normal in structure and function. There is no pulmonic valvular regurgitation. GREAT VESSELS The aortic root is normal in size. The IVC was not visualized. PERICARDIAL EFFUSION The pericardium appears normal. <Conclusion> The left ventricle is normal size. There is normal left ventricular wall thickness. There is normal LV segmental wall motion. Left ventricle systolic function is normal. The Ejection Fraction is 60-65%. Transmitral Doppler flow pattern is Grade I-abnormal relaxation pattern.
--- NOTE | 2017-01-05 14:49 | CP.PCM.DIS ---
Provider - Provider Date of Admission: 01/04/17 22:00 Attending physician: Yajaira Fernández MD Time Spent in preparation of Discharge (in minutes): 15 Diagnosis - Discharge Diagnosis (1) DVT prophylaxis Status: Acute (2) Hypokalemia Status: Acute (3) Elevated WBC count Status: Acute (4) Chest pain Status: Acute (5) Opiate withdrawal Status: Acute Hospital Course - Lab Results Lab Results: Most Recent Lab Values WBC 14.1 K/uL (4.8-10.8) H 01/05/17 04:25 RBC 4.52 Mil/uL (3.80-5.20) 01/05/17 04:25 Hgb 13.5 g/dL (12.0-16.0) 01/05/17 04:25 Hct 41.0 % (34.0-47.0) 01/05/17 04:25 MCV 90.7 fl (81.0-99.0) 01/05/17 04:25 MCH 29.8 pg (27.0-31.0) 01/05/17 04:25 MCHC 32.8 g/dL (33.0-37.0) L 01/05/17 04:25 RDW 14.6 % (11.5-14.5) H 01/05/17 04:25 Plt Count 167 K/uL (130-400) 01/05/17 04:25 MPV 8.3 fl (7.2-11.7) 01/05/17 04:25 Neut % (Auto) 73.0 % (50.0-75.0) 01/05/17 04:25 Lymph % (Auto) 19.7 % (20.0-40.0) L 01/05/17 04:25 Hemphill % (Auto) 7.0 % (0.0-10.0) 01/05/17 04:25 Eos % (Auto) 0.0 % (0.0-4.0) 01/05/17 04:25 Baso % (Auto) 0.3 % (0.0-2.0) 01/05/17 04:25 Neut # 10.3 K/uL (1.8-7.0) H 01/05/17 04:25 Lymph # 2.8 K/uL (1.0-4.3) 01/05/17 04:25 Hemphill # 1.0 K/uL (0.0-0.8) H 01/05/17 04:25 Eos # 0.0 K/uL (0.0-0.7) 01/05/17 04:25 Baso # 0.0 K/uL (0.0-0.2) 01/05/17 04:25 Neutrophils % (Manual) 88 % (42-75) H 01/04/17 03:43 Band Neutrophils % 1 % (0-2) 01/04/17 03:43 Lymphocytes % (Manual) 8 % (20-50) L 01/04/17 03:43 Monocytes % (Manual) 2 % (0-10) 01/04/17 03:43 Eosinophils % (Manual) 1 % (0-7) 01/04/17 03:43 Platelet Estimate Normal (NORMAL) 01/04/17 03:43 RBC Morphology Normal (NORMAL) 01/04/17 03:43 PT 12.0 SECONDS (9.6-11.2) H 01/04/17 03:43 INR 1.15 (0.92-1.08) H 01/04/17 03:43 APTT 22.9 SECONDS (23.3-32.5) L 01/04/17 03:43 Sodium 141 mmol/l (132-148) 01/05/17 04:25 Potassium 3.0 MMOL/L (3.6-5.0) L 01/05/17 04:25 Chloride 103 mmol/L (98-107) 01/05/17 04:25 Carbon Dioxide 25 mmol/L (22-30) 01/05/17 04:25 Anion Gap 16 (10-20) 01/05/17 04:25 BUN 14 mg/dl (7-17) 01/05/17 04:25 Creatinine 0.6 mg/dL (0.7-1.2) L 01/05/17 04:25 Est GFR ( Amer) > 60 01/05/17 04:25 Est GFR (Non-Af Amer) > 60 01/05/17 04:25 Random Glucose 132 mg/dL (65-105) H 01/05/17 04:25 Calcium 10.2 mg/dL (8.4-10.2) 01/05/17 04:25 Total Bilirubin 0.8 mg/dl (0.2-1.3) 01/05/17 04:25 AST 71 U/L (14-36) H D 01/05/17 04:25 ALT 63 U/L (9-52) H D 01/05/17 04:25 Alkaline Phosphatase 113 U/L (38-126) 01/05/17 04:25 Troponin I < 0.0120 ng/mL (0.00-0.120) 01/04/17 22:51 Total Protein 8.3 G/DL (6.3-8.2) H 01/05/17 04:25 Albumin 4.6 g/dL (3.5-5.0) 01/05/17 04:25 Globulin 3.6 gm/dL (2.2-3.9) 01/05/17 04:25 Albumin/Globulin Ratio 1.3 (1.0-2.1) 01/05/17 04:25 Lipase 40 U/L (23-300) 01/04/17 03:43 Urine Color Yellow (YELLOW) 01/04/17 04:26 Urine Clarity Turbid (Clear) 01/04/17 04:26 Urine pH 6.0 (5.0-8.0) 01/04/17 04:26 Ur Specific [place] 1.030 (1.003-1.030) 01/04/17 04:26 Urine Protein 100 mg/dL (NEGATIVE) 01/04/17 04:26 Urine Glucose (UA) Negative mg/dL (Normal) 01/04/17 04:26 Urine Ketones 20 mg/dL (NEGATIVE) 01/04/17 04:26 Urine Blood Small (NEGATIVE) 01/04/17 04:26 Urine Nitrate Negative (NEGATIVE) 01/04/17 04:26 Urine Bilirubin Negative (NEGATIVE) 01/04/17 04:26 Urine Urobilinogen 0.2-1.0 mg/dL (0.2-1.0) 01/04/17 04:26 Ur Leukocyte Esterase Negative Immanuel/uL (Negative) 01/04/17 04:26 Urine RBC (Auto) 41 /hpf (0-3) H 01/04/17 04:26 Urine Microscopic WBC 37 /hpf (0-5) H 01/04/17 04:26 Ur Squamous Epith Cells 2 /hpf (0-5) 01/04/17 04:26 Urine Bacteria Occ (<OCC) H 01/04/17 04:26 Urine Yeast (Budding) Occ /hpf (NEGATIVE) H 01/04/17 04:26 Urine Opiates Screen Positive (NEGATIVE) H 01/04/17 04:56 Urine Methadone Screen Negative (NEGATIVE) 01/04/17 04:56 Ur Barbiturates Screen Negative (NEGATIVE) 01/04/17 04:56 Ur Phencyclidine Scrn Negative (NEGATIVE) 01/04/17 04:56 Ur Amphetamines Screen Negative (NEGATIVE) 01/04/17 04:56 U Benzodiazepines Scrn Negative (NEGATIVE) 01/04/17 04:56 U Oth Cocaine Metabols Negative (NEGATIVE) 01/04/17 04:56 U Cannabinoids Screen Negative (NEGATIVE) 01/04/17 04:56 Alcohol, Quantitative < 10 mg/dl (0-10) 01/04/17 03:43 Discharge Exam - Head Exam Head Exam: ATRAUMATIC, NORMAL INSPECTION, NORMOCEPHALIC Discharge Plan - Follow Up Plan Condition: FAIR Disposition: HOME/ ROUTINE Additional Instructions: final dx-cp, opioid abuse rx for pain meds left by dr campbell. rted prn, meds per med rec
== END 2017-01-05 15:30 | disposition home or self-care (01) | DRG 143 ==
LOC: H.ER 02:33 → H.ERHOLD 03:26 → H.ICU/CCU 05:27 → OBSVTOIN 22:00
PROVIDERS: ADMIT Family Medicine; ATTEND Family Medicine
DX: R07.9 Chest pain, unspecified (principal); I10 Essential (primary) hypertension; F11.23 Opioid dependence with withdrawal; E87.6 Hypokalemia; F31.9 Bipolar disorder, unspecified; D72.829 Elevated white blood cell count, unspecified; G89.29 Other chronic pain; J45.909 Unspecified asthma, uncomplicated; M47.816 Spondylosis without myelopathy or radiculopathy, lumbar region; M47.812 Spondylosis without myelopathy or radiculopathy, cervical region; Z85.3 Personal history of malignant neoplasm of breast; F41.9 Anxiety disorder, unspecified; Z91.041 Radiographic dye allergy status; M51.26 Other intervertebral disc displacement, lumbar region

== ENCOUNTER 2017-08-13 08:43 | Emergency (ER) | payer MEDICAID ==
[2017-08-13 08:44] VITALS: BMI 29.2
[2017-08-13 09:15] VITALS: PULSE 92; TEMP 98; O2SAT 100
--- NOTE | 2017-08-13 09:51 | ED PDOC ---
HPI: Back Time Seen by Provider: 08/13/17 09:20 Chief Complaint (Nursing): Back Pain History Per: Patient History/Exam Limitations: no limitations Onset/Duration Of Symptoms: Gradual (chronic pain for years with acute worsening ) Current Symptoms Are (Timing): Still Present Quality Of Discomfort: Sharp Severity: Moderate Previous Symptoms: Back Pain Associated Symptoms: None Exacerbating Factor(s): Movement Additional History Per: Patient Additional Complaint(s): Pt c/o chronic back pain due to bulging disc but states pain got worse yesterday. no bowel or bladder incontinence, no n/t/w chronic pain pt seens Dr campbell, pt states she get dilaudid for the pain. pt also admitted here approx 6 mo ago for heroin use, pt deneis any drug use now. Past Medical History Reviewed: Historical Data, Nursing Documentation, Vital Signs Vital Signs: Last Vital Signs Temp 98 F 08/13/17 09:10 Pulse 92 H 08/13/17 09:10 Resp 18 08/13/17 09:10 BP 112/84 08/13/17 09:10 Pulse Ox 100 08/13/17 09:10 - Medical History PMH: Anxiety, Asthma, Bipolar Disorder, Depression Denies: Chronic Kidney Disease - Family History Family History: States: Unknown Family Hx - Living Arrangements Living Arrangements: With Family - Social History Current smoker - smoking cessation education provided: No Drugs: Denies, Opiates (h/o) - Home Medications Home Medications: Ambulatory Orders Medication Instructions Recorded Alprazolam [Xanax] 1 mg PO QID 04/27/14 DULoxetine [Cymbalta] 100 mg PO HS 04/27/14 Quetiapine Fumarate [Seroquel] 100 mg PO HS 04/27/14 traZODone [Desyrel] 50 mg PO DAILY 11/21/14 Hydromorphone HCl [Dilaudid] 2 mg PO Q6 PRN 03/06/15 Naproxen 500 mg PO BID PRN #30 ect 08/13/17 - Allergies Allergies/Adverse Reactions: Allergies Allergy/AdvReac Type Severity Reaction Status Date / Time iodine Allergy RASH Verified 08/13/17 09:09 Review of Systems ROS Statement: Except As Marked, All Systems Reviewed And Found Negative Constitutional: Negative for: Fever, Chills Cardiovascular: Negative for: Chest Pain, Palpitations Respiratory: Negative for: Cough, Shortness of Breath Gastrointestinal: Negative for: Nausea, Vomiting, Abdominal Pain, Diarrhea Genitourinary Female: Negative for: Dysuria, Frequency, Incontinence Musculoskeletal: Positive for: Back Pain Skin: Negative for: Rash Neurological: Negative for: Weakness, Numbness, Headache Physical Exam - Reviewed Nursing Documentation Reviewed: Yes Vital Signs Reviewed: Yes - Physical Exam Appears: Positive for: Non-toxic, Uncomfortable Head Exam: Positive for: ATRAUMATIC, NORMAL INSPECTION, NORMOCEPHALIC Eye Exam: Positive for: Normal appearance, EOMI, PERRL Neck: Positive for: Normal, Painless ROM, Supple Cardiovascular/Chest: Positive for: Regular Rate, Rhythm, Chest Non Tender. Negative for: Edema, Gallop, Murmur, Bradycardia, Tachycardia Respiratory: Positive for: Normal Breath Sounds. Negative for: Decreased Breath Sounds, Accessory Muscle Use, Crackles, Rales, Rhonchi, Stridor, Wheezing , Respiratory Distress Gastrointestinal/Abdominal: Positive for: Normal Exam, Bowel Sounds, Soft. Negative for: Tenderness, Organomegaly, Mass, Distended, Guarding Back: Positive for: Normal Inspection. Negative for: L CVA Tenderness, R CVA Tenderness, Vertebral Tenderness, Decreased ROM, Muscle Spasm Extremity: Positive for: Normal ROM. Negative for: Tenderness, Pedal Edema, Calf Tenderness, Capillary Refill, Deformity, Swelling Neurologic/Psych: Positive for: Alert, science tutor II-XII, Oriented, Mood/Affect (calm) , Gait, Other (+ ehl no saddles anesthesia). Negative for: Motor/Sensory Deficits, Aphasia, Facial Droop - ECG O2 Sat by Pulse Oximetry: 100 Pulse Ox Interpretation: Normal - Progress ED Course And Treament: pt wanted narcotics for pain but given pt h/o of heroin abuse, pt consoled on risks of narcotics abuse reemerging we agree that treatment for nsaids will be started first and will f/u with pain magment. pt sx improved and leaves ambulatory and in good spirits. Re-evaluation Time: 09:53 Condition: Improved Disposition - Clinical Impression Clinical Impression: Low back pain, Narcotic abuse in remission - Patient ED Disposition Is Patient to be Admitted: No Counseled Patient/Family Regarding: Studies Performed, Diagnosis, Need For Followup, Rx Given - Disposition Referrals: Alan Maddox,MD [facility] [Non-Staff] - (2 to 3 days) Disposition: Routine/Home Disposition Time: 09:20 Condition: GOOD Prescriptions: Naproxen 500 mg PO BID PRN #30 ect PRN Reason: Pain, Mild (1-3) Instructions: Acute Low Back Pain (ED)
[2017-08-13 10:38] VITALS: BP 110/82; RESP 16
== END 2017-08-13 10:37 | disposition home or self-care (01) ==
LOC: H.ER 08:43
DX: M54.5 Low back pain (principal); F11.10 Opioid abuse, uncomplicated; F31.9 Bipolar disorder, unspecified; F41.9 Anxiety disorder, unspecified; G89.29 Other chronic pain; J45.909 Unspecified asthma, uncomplicated
CPT/HCPCS: 96372; 99282; J1885

== ENCOUNTER 2017-09-15 09:05 | Day surgery (SDC) | payer MEDICAID ==
[2017-09-14 14:03] VITALS: BMI 26.6
[2017-09-15 09:31] VITALS: RESP 18
[2017-09-15] MEDS ORDERED: MethylPREDNISolone Depo 40 mg/ml Inj ONE (11:00)
[2017-09-15] MEDS ORDERED: Bupivacaine HCl 0.25% PF (10 ml) Inj ONE (11:01)
[2017-09-15] MEDS ORDERED: Lidocaine 1% Inj (20ml) ONE ×2 (11:01→11:43)
[2017-09-15] MEDS ORDERED: Lactated Ringer's 1,000 ML IV ONE (11:15)
[2017-09-15] MEDS ORDERED: Midazolam 2 MG/2 ML VIAL ONE (11:15)
[2017-09-15] MEDS ORDERED: Bupivacaine HCl 0.5% PF (10 ml) Inj ONE (11:19)
[2017-09-15] MEDS ORDERED: Bupivacaine HCl 0.5% PF (10 ml) Inj IJ ONE (11:20)
[2017-09-15] MEDS ORDERED: Bupivacaine HCl 0.25% PF (10 ml) Inj IJ ONE (11:20)
[2017-09-15] MEDS ORDERED: Lidocaine 1% Inj (20ml) IJ ONE ×5 (11:20)
[2017-09-15] MEDS ORDERED: methylPREDNISolone Depo 80 mg/ml Inj IM ONE (11:20)
[2017-09-15] MEDS ORDERED: Lactated Ringer's 1,000 ML IV SCH (12:15)
[2017-09-15 13:07] VITALS: BP 123/83; PULSE 82; TEMP 97.7; O2SAT 96
--- NOTE | 2017-09-15 16:39 | OP ---
PROCEDURE DATE: 09/15/2017 PREOPERATIVE DIAGNOSIS: Lumbar facet syndrome. POSTOPERATIVE DIAGNOSES: Bilateral L3, L4, and L5 medial branch nerve radiofrequency. SURGEON: Dina Phillips MD ANESTHESIOLOGIST: Alessandro Barrios MD TYPE OF ANESTHESIA: Monitored anesthesia care. COMPLICATIONS: None. SPECIMEN: None. DESCRIPTION OF PROCEDURE: As follows; After discussion of the procedure with the patient including its risks, benefits, alternative, outcome data, possibility of no effect or increased pain, patient consented to the procedure. She denies any recent infections, bleeding tendencies or being on anticoagulants; the decision was then made to proceed to the OR. The patient was placed on the fluoroscopy table in a prone position with 2 pillows underneath her abdomen. The back was prepped and draped in the usual sterile fashion and sterile technique was adhered during the entire procedure. The L3, L4 and L5 medial branch nerves were located at the intersection of the superior articular process and the transverse process of the L4 and L5 pedicles along with the sacral ala. The procedure was performed on the right side by turning the fluoroscopy towards the right at approximately 15 degrees. The skin overlying the three above target areas were then infiltrated with 1% lidocaine using 25-gauge needle. Subsequently, a 22-gauge 3.5 inch Stimuplex needle was then incrementally advanced under fluoroscopic guidance until the tip of needle made bony contact with all three target areas. After satisfactory positioning of all 3 needles, sensory and motor testing was carried out to satisfactory results. At this point, each nerve was anesthetized with 1% lidocaine. Radiofrequency was then carried out at 80 degree Celsius for approximately 1.5 minutes. At the end of the radiofrequency procedure, each nerve was treated with a combination of 0.5% Marcaine and Depo-Medrol. The needle was removed and the same exact procedure was performed on the contralateral left side using the same medications and techniques. At the end of the case, the patient's back was cleaned and dried, and bandages were applied. The patient was then transferred to the recovery area in good conditions without any signs of SENIOR DEVOPS ENGINEER toxicity or any neurological deficit. She will follow up in our office in approximately two to four weeks. Dina Phillips MD [facility] # [id number]
--- NOTE | 2017-09-16 14:25 | RAD ---
PROCEDURE: Fluoroscopy up to 1 hr. HISTORY: PAIN MANAGEMENT COMPARISON: None TECHNIQUE: Standard protocol for this study/examination. FINDINGS: Total fluoroscopic time (continuous mode) utilized during the procedure: 117.2 Total exam DLP: (mGy): 26.39 IMPRESSION: Less than 1 hr fluoroscopic time utilized during performance of the procedure.
== END 2017-09-15 13:36 | disposition home or self-care (01) ==
LOC: H.OPSURG 09:05
PROVIDERS: ATTEND Anesthesiology
DX: M46.1 Sacroiliitis, not elsewhere classified (principal)
CPT/HCPCS: 64635; 64636; J1030; J1040; J2250; J3010; J7120

== ENCOUNTER 2018-10-20 16:32 | Emergency (ER) | payer MEDICAID ==
[2018-10-20 16:32] VITALS: BMI 26.6
[2018-10-20 16:51] VITALS: TEMP 97.6
[2018-10-20] MEDS ORDERED: Oxycodone/Acetaminophen 5/325 mg Tab PO STA (17:28)
[2018-10-20] MEDS ORDERED: Lidocaine 5% Patch TD STA (17:29)
[2018-10-20] MEDS ORDERED: Oxycodone/Acetaminophen 5/325 mg Tab ONE (17:47)
[2018-10-20] MEDS ORDERED: Lidocaine 5% Patch TD ONE (17:47)
--- NOTE | 2018-10-20 18:06 | ED PDOC ---
HPI: Back Time Seen by Provider: 10/20/18 17:18 Chief Complaint (Nursing): Back Pain Chief Complaint (Provider): Back Pain History Per: Patient History/Exam Limitations: no limitations Onset/Duration Of Symptoms: Hrs (x7) Current Symptoms Are (Timing): Still Present Additional Complaint(s): 58 year old female presents to the ED stating at noon today, she tripped and f ell and did a "leg split". The right leg was in the back and left leg in the front injuring her lower back while doing so. Patient states she has had pain there since. She reports a history of herniated discs in the lower back. Patient did not take any medications to help with the pain. Denies numbness, tingling, weakness, hematuria, dysuria, incontinence, or saddle paresthesia. PMD: [facility] Past Medical History Reviewed: Historical Data, Nursing Documentation, Vital Signs Vital Signs: Last Vital Signs Temp 97.6 F 10/20/18 16:44 Pulse 127 H 10/20/18 16:44 Resp 18 10/20/18 16:44 BP 122/76 10/20/18 16:44 Pulse Ox 100 10/20/18 16:44 - Medical History PMH: Anxiety, Asthma, Bipolar Disorder, Depression Denies: Chronic Kidney Disease Other PMH: Herniated discs - Surgical History Surgical History: No Surg Hx - Family History Family History: States: Unknown Family Hx - Home Medications Home Medications: Ambulatory Orders Medication Instructions Recorded Alprazolam [Xanax] 1 mg PO QID 04/27/14 DULoxetine [Cymbalta] 100 mg PO HS 04/27/14 Quetiapine Fumarate [Seroquel] 100 mg PO HS 04/27/14 traZODone [Desyrel] 50 mg PO DAILY 11/21/14 Naproxen 500 mg PO BID PRN #30 ect 08/13/17 Gabapentin [Neurontin] 300 mg PO BID 09/14/17 lamoTRIgine [Lamictal] 100 mg PO DAILY 09/14/17 Meloxicam [Mobic] 15 mg PO DAILY PRN #10 tab 10/20/18 Methocarbamol [Robaxin] 500 mg PO TID PRN #12 tablet 10/20/18 - Allergies Allergies/Adverse Reactions: Allergies Allergy/AdvReac Type Severity Reaction Status Date / Time iodine Allergy RASH Verified 08/13/17 09:09 Review of Systems ROS Statement: Except As Marked, All Systems Reviewed And Found Negative Genitourinary Female: Negative for: Dysuria, Incontinence, Hematuria Musculoskeletal: Positive for: Back Pain (lower) Neurological: Negative for: Weakness, Numbness (or tingilng), Other (saddle paresthesia) Physical Exam - Reviewed Nursing Documentation Reviewed: Yes Vital Signs Reviewed: Yes - Physical Exam Appears: Positive for: In Acute Distress (Moderate painful distress) Cardiovascular/Chest: Positive for: Regular Rate, Rhythm Respiratory: Positive for: Normal Breath Sounds. Negative for: Wheezing, Respiratory Distress Pulses-Dorsalis Pedis (L): 2+ Pulses-Dorsalis Pedis (R): 2+ Gastrointestinal/Abdominal: Positive for: Normal Exam, Soft. Negative for: Tenderness Back: Positive for: Vertebral Tenderness (midline), Muscle Spasm (paraluy). 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 DISCS/DEGENERATIVE CHANGES: T12/L1: No significant central canal or neural foraminal stenosis. L1/L2: No significant central canal or neural foraminal stenosis. L2/L3: No significant central canal or neural foraminal stenosis. L3/4: No significant central canal or neural foraminal stenosis. L4/5: No significant central canal or neural foraminal stenosis. L5/S1: No significant central canal or neural foraminal stenosis. BONES: No acute fracture or aggressive appearing osseous lesion. SOFT TISSUES: The soft tissues are unremarkable. MISCELLANEOUS: No abnormal contrast enhancement. IMPRESSION: No acute lumbar spine abnormality. On re-evaluation, pt. reports good relief of pain. Gait steady, unassisted. Informed of results. Advised to f/u with pain management for further evaluation but is to return to ED immediately if symptoms worsen. Scribe Attestation: Documented by Segundo Pierre acting as a scribe for Aftab GARCIA. Provider Scribe Attestation: All medical record entries made by the Scribe were at my direction and personally dictated by me. I have reviewed the chart and agree that the record accurately reflects my personal performance of the history, physical exam, medical decision making, and the department course for this patient. I have also personally directed, reviewed, and agree with the discharge instructions and disposition. Disposition - Clinical Impression Clinical Impression: Injury of low back - Patient ED Disposition Is Patient to be Admitted: No - Disposition Referrals: Shayan Ronquillo MD [Primary Care Provider] - Disposition: Routine/Home Disposition Time: 19:35 Condition: IMPROVED Additional Instructions: FOLLOW UP WITH YOUR PAIN MANAGEMENT DOCTOR FOR FURTHER EVALUATION RETURN TO ED IMMEDIATELY IF SYMPTOMS WORSEN FRANCESCA GRIGGS, thank you for letting us take care of you today. Your provider was Johnny Mays MD and you were treated for BACK PAIN. The emergency medical care you received today was directed at your acute symptoms. If you were p rescribed any medication, please fill it and take as directed. It may take several days for your symptoms to resolve. Return to the Emergency Department if your symptoms worsen, do not improve, or if you have any other problems. Please contact your doctor or call one of the physicians/clinics you have been referred to that are listed on the Patient Visit Information form that is included in your discharge packet. Bring any paperwork you were given at discharge with you along with any medications you are taking to your follow up visit. Our treatment cannot replace ongoing medical care by a primary care provider outside of the emergency department. Thank you for allowing the [facility] team to be part of your care today. If you had an X-Ray or CT scan: A Radiologist will review the ED reading if any change in treatment is needed we will contact you. If you had a blood, urine, or wound culture: It will take several days for the results, if any change in treatment is needed we will contact you. If you had an STI test: It will take 48 hours for the results. Please call after 1 week if you have not heard back. Prescriptions: Meloxicam [Mobic] 15 mg PO DAILY PRN #10 tab PRN Reason: Pain Methocarbamol [Robaxin] 500 mg PO TID PRN #12 tablet PRN Reason: Muscle Spasm Instructions: Low Back Pain (DC) Forms: [employer] (Pashto) Print Language: CZECH
[2018-10-20 19:06] VITALS: BP 103/66; PULSE 95; RESP 16
[2018-10-20 19:37] VITALS: O2SAT 100
--- NOTE | 2018-10-21 09:43 | CT ---
Date of service: 10/20/2018 PROCEDURE: CT Lumbar Spine without contrast HISTORY: trauma COMPARISON: None available. TECHNIQUE: Axial computed tomography images were obtained of the lumbar spine without the use of intravenous contrast. Coronal and sagittal reformatted images were created and reviewed. Radiation dose: Total exam DLP = 456.3 mGy-cm. This CT exam was performed using one or more of the following dose reduction techniques: Automated exposure control, adjustment of the mA and/or kV according to patient size, and/or use of iterative reconstruction technique. FINDINGS: VERTEBRAE: Unremarkable. No fracture. Normal alignment. DISCS/SPINAL CANAL/NEURAL FORAMINA: L1-2: Unremarkable. L2-3: Minimal disc bulging is appreciated circumferentially without central canal or neural foraminal significant stenosis resulting. L3-4: Limited circumferential disc bulging occurs with mild facet joint degenerative changes present. Flattening the ventral thecal sac is appreciate with borderline central canal stenosis resulting. No significant neural foraminal stenosis bilaterally. L4-5: Limited circumferential disc bulging occurs with mild facet joint degenerative changes present. Flattening the ventral thecal sac is appreciate with borderline central canal stenosis resulting. No significant neural foraminal stenosis bilaterally. L5-S1: Unremarkable. No overt pattern to suggest disc herniation. MRI is more sensitive in evaluation of intervertebral discs than CT. PARASPINAL SOFT TISSUES: Unremarkable. OTHER FINDINGS: None. IMPRESSION: No fracture or spondylolisthesis. Normal lumbar curvature without destructive bony lesion appreciable. Limited circumferential disc bulging and facet joint arthropathy are appreciated at L3-4 and L4-5 with borderline central stenosis resulting but no significant neural foraminal stenosis bilaterally. Lesser degenerative disc changes are seen at L2-[address] overt CT pattern to suggest disc herniation. A disc herniation remains clinically suspected then follow-up MRI is recommended. Preliminary report provided by Alexis, 10/20/2018, 7:16 p.m..
== END 2018-10-20 19:44 | disposition home or self-care (01) ==
LOC: H.ER 16:32
DX: S39.92XA Unspecified injury of lower back, initial encounter (principal); W01.0XXA Fall on same level from slipping, tripping and stumbling without subsequent striking against object, initial encounter; Y99.0 Civilian activity done for income or pay
CPT/HCPCS: 72131; 96372; 99284; J1885